=== PATIENT | female | born 1940 | race Hispanic/Latino ===

== ENCOUNTER 2017-09-02 01:45 | Inpatient (IN) | payer MEDICARE ==
[~2017-09-02] VITALS: Ht 154.9 cm; Wt 50.4 kg
[~2017-09-02 01:45] MED LIST: AMLO5TAB2 PO; CEPH500T PO; LEVO50 PO; METF-526 PO; PANT20TA12 PO
[2017-09-02 02:10] LABS: BASOPHILS % (AUTO) 0.7 % (0.0-5.0); EOSINOPHILS % (AUTO) 0.2 % (0.0-8.0); HEMATOCRIT 24.4 % (36-48); LYMPHOCYTES % (AUTO) 7.2 % (21.0-51.0); MEAN CORPUSCULAR HEMOGLOBIN 26.9 pg (27.0-33.0); MEAN CORPUSCULAR HGB CONC 32.1 g/dL (32.0-36.0); MEAN CORPUSCULAR VOLUME 83.9 fL (79-99); MONOCYTES % (AUTO) 5.8 % (3.0-13.0); NEUTROPHILS % (AUTO) 86.1 % (40.0-77.0); PLATELET COUNT (AUTO) 366 K/uL (130-400); RED BLOOD CELL COUNT(AUTO) 2.91 MIL/uL (4.00-5.50); RED CELL DISTRIBUTION WIDTH 21.6 % (11.0-15.5); WHITE BLOOD COUNT (AUTO) 10.8 K/uL (4.8-10.8)
[2017-09-02 02:18] LABS: CARBON DIOXIDE 17 mmol/L (21-32); CHLORIDE 97 mmol/L (101-111); CREATININE 0.7 mg/dL (0.5-1.5); GLOMERULAR FILTR. RATE CALC 86 mL/min (>60); GLUCOSE,RANDOM 194 mg/dL (70-105); INR 1.25 (0.85-1.15); PARTIAL THROMBOPLASTIN TIME 40.4 SEC (26.3-35.5); POTASSIUM 3.2 mmol/L (3.5-5.1); PROTHROMBIN TIME 13.1 SEC (9.6-11.6); SODIUM SERUM 128 mmol/L (136-145); UREA NITROGEN, BLOOD 5 mg/dL (7-18)
[2017-09-02 02:34] LABS: ALANINE AMINOTRANSFERASE 10 U/L (12-78); ALBUMIN 1.9 g/dL (3.5-5.0); AMYLASE 18 U/L (25-115); ASPARTATE AMINOTRANSFERASE 37 U/L (10-37); BILIRUBIN,TOTAL 0.7 mg/dL (0.2-1.0); CREATINE KINASE MB < 0.5 ng/mL (0.5-3.6); LIPASE 92 U/L (114-286); TOTAL PROTEIN, SERUM 5.3 g/dL (6.0-8.3)
[2017-09-02] MEDS ORDERED: SODIUM CHLORIDE 0.9% 1000ML 1,000 ML IV ONE ×2 (05:11→08:20)
[2017-09-02] MEDS ORDERED: ONDANSETRON HCL 4 MG/2 ML VIAL ONE (05:11)
[2017-09-02] MEDS ORDERED: SODIUM CHLORIDE 0.9% 500ML 500 ML IV ONE (11:33)
[2017-09-02] MEDS ORDERED: DEXAMETHASONE SOD PHOSPHATE 10MG/ML 1ML VIAL ONE (11:43)
[2017-09-02 15:35] LABS: APPEARANCE,URINE Clear (CLEAR); BILIRUBIN,URINE Negative (NEGATIVE); COLOR,URINE Dark Yellow (YELLOW); GLUCOSE, URINE (UA) TRACE mg/dL (NEGATIVE); KETONES,URINE >=80 mg/dL (NEGATIVE); LEUKOCYTE ESTERASE ,URINE Small (NEGATIVE); NITRATE,URINE Negative (NEGATIVE); OCCULT BLOOD,URINE Negative (NEGATIVE); PH,URINE 5.5 (5.0-8.0); PROTEIN,URINE POS 1+ (NEGATIVE)
[2017-09-02 16:15] LABS: BACTERIA,URINE Rare /HPF (None Seen); MUCUS,URINE Few LPF (None Seen); RBC,URINE 0-1 /HPF (0-1); SQUAMOUS EPITHELIAL CELL,UR Rare /LPF (0-2)
[2017-09-02 20:30] VITALS: BP 133/81
[2017-09-02] MEDS ORDERED: MORPHINE SULFATE 2 MG/ML 1ML SYG IVP PRN (21:00)
[2017-09-02 23:00] VITALS: BP 105/54
[2017-09-03] MEDS: ONDANSETRON HCL 4 MG/2 ML VIAL IVP PRN ×2 (01:28→11:04)
[2017-09-03 03:00] VITALS: BP 135/62
[2017-09-03 04:14] LABS: HEMATOCRIT 29.4 % (36-48)
[2017-09-03] MEDS ORDERED: MORPHINE SULFATE 4 MG/1ML SYG ONE (05:44)
[2017-09-03] MEDS: SODIUM CHLORIDE 0.9% 1000ML 1,000 ML IV SCH ×2 (06:49→19:34)
[2017-09-03 07:00] VITALS: BP 128/63
[2017-09-03] MEDS ORDERED: POTASSIUM CHLORIDE 20 MEQ ERTAB PO ONE (10:57)
[2017-09-03] MEDS ORDERED: POTASSIUM CHLORIDE 10% ELIXIR 20 MEQ/15 ML UDCUP ONE (10:58)
[2017-09-03] MEDS ORDERED: POTASSIUM CHLORIDE 20MEQ/100ML 100 ML IV ONE (10:58)
[2017-09-03 11:00] VITALS: BP 124/57
[2017-09-03] MEDS ORDERED: POTASSIUM CHLORIDE 20 MEQ ERTAB PO PRN (11:00)
[2017-09-03] MEDS ORDERED: POTASSIUM CHLORIDE 10% ELIXIR 20 MEQ/15 ML UDCUP PO PRN (11:00)
[2017-09-03] MEDS ORDERED: METOCLOPRAMIDE 10 MG/2 ML VIAL IVP PRN (12:30)
[2017-09-03 15:21] LABS: CREATININE 0.6 mg/dL (0.5-1.5); POTASSIUM 4.5 mmol/L (3.5-5.1)
[2017-09-03 16:00] VITALS: BP 138/80
[2017-09-03 20:39] VITALS: BP 120/67
[2017-09-04] VITALS (7 sets, daily range): BP systolic 104–136; BP diastolic 61–73
[2017-09-04] MEDS: SODIUM CHLORIDE 0.9% 1000ML 1,000 ML IV SCH ×2 (06:18→15:35)
[2017-09-04] MEDS ORDERED: CEFTRIAXONE 1GM/D5W 50ML 50 ML IV SCH (14:15)
[2017-09-04] MEDS: CEFTRIAXONE SODIUM 1 GM IVP SCH (15:35)
[2017-09-05] MEDS: SODIUM CHLORIDE 0.9% 1000ML 1,000 ML IV SCH ×3 (02:06→21:08)
[2017-09-05 03:00] VITALS: BP 115/68
[2017-09-05 07:00] VITALS: BP 111/69
[2017-09-05 08:50] LABS: HEMATOCRIT 31.2 % (36-48); MEAN CORPUSCULAR HEMOGLOBIN 27.5 pg (27.0-33.0); MEAN CORPUSCULAR HGB CONC 32.9 g/dL (32.0-36.0); MEAN CORPUSCULAR VOLUME 83.5 fL (79-99); PLATELET COUNT (AUTO) 337 K/uL (130-400); RED BLOOD CELL COUNT(AUTO) 3.73 MIL/uL (4.00-5.50); RED CELL DISTRIBUTION WIDTH 20.6 % (11.0-15.5); WHITE BLOOD COUNT (AUTO) 12.8 K/uL (4.8-10.8)
[2017-09-05 09:02] LABS: BILIRUBIN,TOTAL 0.4 mg/dL (0.2-1.0); CREATININE 0.5 mg/dL (0.5-1.5); POTASSIUM 3.3 mmol/L (3.5-5.1); TOTAL PROTEIN, SERUM 4.5 g/dL (6.0-8.3)
[2017-09-05 09:31] LABS: ALBUMIN 1.6 g/dL (3.5-5.0); MAGNESIUM 1.1 mg/dL (1.80-2.40)
[2017-09-05 11:00] VITALS: BP 114/61
[2017-09-05] MEDS ORDERED: MAGNESIUM 2GM PREMIX 50ML 50 ML IV SCH (14:00)
[2017-09-05] MEDS: CEFTRIAXONE SODIUM 1 GM IVP SCH (15:25)
[2017-09-05 15:56] VITALS: BP_SYST 117; BP_SYST 137; BP_DIAS 66; BP_DIAS 72
[2017-09-05] MEDS: LIDOCAINE HCL-MPF 1% 2ML VIAL IVP PRN (19:06)
[2017-09-05] MEDS: POTASSIUM CHLORIDE 20MEQ/100ML 100 ML IV PRN (19:06)
[2017-09-05 19:25] VITALS: BP 110/57
[2017-09-05 23:25] VITALS: BP 127/69
[2017-09-06 03:30] VITALS: BP 118/64
[2017-09-06] MEDS: SODIUM CHLORIDE 0.9% 1000ML 1,000 ML IV SCH ×2 (05:00→15:00)
[2017-09-06 07:06] LABS: CREATININE 0.4 mg/dL (0.5-1.5); MAGNESIUM 1.5 mg/dL (1.80-2.40); POTASSIUM 3.2 mmol/L (3.5-5.1)
[2017-09-06 08:00] VITALS: BP 122/61
[2017-09-06] MEDS: POTASSIUM CHLORIDE 20 MEQ ERTAB PO SCH ×2 (09:00→10:13)
[2017-09-06] MEDS: LIDOCAINE HCL-MPF 1% 2ML VIAL IVP PRN (10:15)
[2017-09-06] MEDS: POTASSIUM CHLORIDE 20MEQ/100ML 100 ML IV PRN (10:15)
[2017-09-06 11:00] VITALS: BP 113/64
[2017-09-06] MEDS ORDERED: MAGNESIUM SULFATE 1 GM in SODIUM CHLORIDE 0.9% 50 ML IV SCH (13:30)
[2017-09-06] MEDS: CEFTRIAXONE SODIUM 1 GM IVP SCH (15:45)
[2017-09-06 16:00] VITALS: BP 126/64
[2017-09-06] MEDS ORDERED: HEPARIN SODIUM/PF 100UNIT/ML 5ML SYRINGE IV SCH (17:00)
== END 2017-09-06 19:00 | DRG 682 ==
LOC: EDH 01:45 → OBSVTOIN 06:05 → EDHIP 06:05 → 3CH 20:13
PROVIDERS: ADMIT Internal Medicine; ATTEND Internal Medicine
PROC: 30233N1 Transfusion of Nonautologous Red Blood Cells into Peripheral Vein, Percutaneous Approach (ICD-10-PCS; principal; 2017-09-02)
DX: N17.9 Acute kidney failure, unspecified (principal); J18.9 Pneumonia, unspecified organism; D64.9 Anemia, unspecified; J44.0 Chronic obstructive pulmonary disease with (acute) lower respiratory infection; C34.90 Malignant neoplasm of unspecified part of unspecified bronchus or lung; E86.0 Dehydration; E87.1 Hypo-osmolality and hyponatremia; E83.42 Hypomagnesemia; R13.10 Dysphagia, unspecified; N39.0 Urinary tract infection, site not specified; E03.9 Hypothyroidism, unspecified; E78.5 Hyperlipidemia, unspecified; E87.6 Hypokalemia; I12.9 Hypertensive chronic kidney disease with stage 1 through stage 4 chronic kidney disease, or unspecified chronic kidney disease; I25.10 Atherosclerotic heart disease of native coronary artery without angina pectoris; N18.9 Chronic kidney disease, unspecified; R62.7 Adult failure to thrive; Z74.01 Bed confinement status; Z95.1 Presence of aortocoronary bypass graft; Z92.3 Personal history of irradiation; Z85.3 Personal history of malignant neoplasm of breast; Z51.11 Encounter for antineoplastic chemotherapy; Z88.8 Allergy status to other drugs, medicaments and biological substances
CPT/HCPCS: 36415; 71045; 74230; 80048; 80053; 81001; 82150; 82553; 83690; 83735; 84484; 85025; 85027; 85610; 85730; 86850; 86900; 86901; 86922; 87088; 87186; 92610; 92611; 93005; A4218; J0696; J1100; J1642; J2270; J2405; J2765; J3475; J3480; J3490; J7030; J7040; P9016

== ENCOUNTER 2017-09-30 11:20 | Inpatient (IN) | payer MEDICARE ==
[~2017-09-30] VITALS: Ht 154.9 cm; Wt 40.9 kg
[~2017-09-30 11:20] MED LIST changes: -AMLO5TAB2 PO; -CEPH500T PO; -METF-526 PO
[2017-09-30] MEDS ORDERED: MORPHINE SULFATE 8 MG/ML VIAL ONE (11:51)
[2017-09-30 12:12] LABS: BASOPHILS % (AUTO) 0.2 % (0.0-5.0); EOSINOPHILS % (AUTO) 1.8 % (0.0-8.0); HEMATOCRIT 31.5 % (36-48); MEAN CORPUSCULAR HEMOGLOBIN 28.9 pg (27.0-33.0); MEAN CORPUSCULAR HGB CONC 34.2 g/dL (32.0-36.0); MEAN CORPUSCULAR VOLUME 84.6 fL (79-99); MONOCYTES % (AUTO) 5.3 % (3.0-13.0); NEUTROPHILS % (AUTO) 82.7 % (40.0-77.0); PLATELET COUNT (AUTO) 445 K/uL (130-400); RED BLOOD CELL COUNT(AUTO) 3.73 MIL/uL (4.00-5.50); RED CELL DISTRIBUTION WIDTH 20.2 % (11.0-15.5); WHITE BLOOD COUNT (AUTO) 16.4 K/uL (4.8-10.8)
[2017-09-30 12:36] LABS: ALBUMIN 2.2 g/dL (3.5-5.0); BILIRUBIN,TOTAL 0.7 mg/dL (0.2-1.0); CREATININE 0.6 mg/dL (0.5-1.5); POTASSIUM 4.2 mmol/L (3.5-5.1); TOTAL PROTEIN, SERUM 6.1 g/dL (6.0-8.3)
[2017-09-30 15:55] LABS: APPEARANCE,URINE CLEAR (CLEAR); BILIRUBIN,URINE SMALL (NEGATIVE); COLOR,URINE YELLOW (YELLOW); GLUCOSE, URINE (UA) NEGATIVE (NEGATIVE); KETONES,URINE 40 mg/dL (NEGATIVE); LEUKOCYTE ESTERASE ,URINE NEGATIVE (NEGATIVE); NITRATE,URINE NEGATIVE (NEGATIVE); OCCULT BLOOD,URINE NEGATIVE (NEGATIVE); PROTEIN,URINE TRACE (NEGATIVE)
[2017-09-30 16:28] LABS: BACTERIA,URINE Rare /HPF (None Seen); RBC,URINE 0-1 /HPF (0-1); SQUAMOUS EPITHELIAL CELL,UR Rare /LPF (0-2); WBC,URINE 0-1 /HPF (0-1)
[2017-09-30 17:53] VITALS: BP 119/68
[2017-09-30] MEDS ORDERED: PANT40TA25 PO (18:00)
[2017-09-30] MEDS: SODIUM CHLORIDE 0.9% 1000ML 1,000 ML IV SCH (18:03)
[2017-09-30] MEDS: ONDANSETRON HCL 4 MG/2 ML VIAL IVP PRN (18:37)
[2017-09-30 19:38] VITALS: BP 123/66
[2017-09-30] MEDS: MORPHINE SULFATE 2 MG/ML 1ML SYG IVP PRN (20:34)
[2017-09-30] MEDS ORDERED: MORPHINE SULFATE 4 MG/1ML SYG ONE (23:04)
[2017-09-30] MEDS ORDERED: MORPHINE SULFATE 2 MG/ML 1ML SYG IVP ONE (23:15)
[2017-09-30 23:54] VITALS: BP 107/64
[2017-10-01] MEDS: KETOROLAC TROMETHAMINE 15MG/ML IV PRN ×2 (03:03→11:20)
[2017-10-01] MEDS: SODIUM CHLORIDE 0.9% 1000ML 1,000 ML IV SCH (03:04)
[2017-10-01 04:44] VITALS: BP 115/56
[2017-10-01 08:00] VITALS: BP 106/61
[2017-10-01] MEDS: FAMOTIDINE/PF 20 MG/2 ML VIAL IV SCH ×2 (08:14→21:02)
[2017-10-01] MEDS: MORPHINE SULFATE 2 MG/ML 1ML SYG IVP PRN ×3 (08:16→18:38)
[2017-10-01] MEDS: ONDANSETRON HCL 4 MG/2 ML VIAL IVP PRN (08:18)
[2017-10-01] MEDS ORDERED: MAG HYDROX/AL HYDROX/SIMETH 30 ML, LIDOCAINE HCL 2% VISCOUS 30 ML, DIPHENHYDRAMINE HCL ... PO PRN ×3 (11:00)
[2017-10-01] MEDS ORDERED: MAG HYDROX/AL HYDROX/SIMETH ES 30 ML SUSP UDCUP PO PRN (11:00)
[2017-10-01] MEDS ORDERED: ACETAMINOPHEN 325 MG TAB PO PRN ×2 (11:00)
[2017-10-01] MEDS ORDERED: LACTULOSE 20 GM/30 ML UDCUP PO PRN (11:00)
[2017-10-01] MEDS ORDERED: GUAIFENESIN-DM 200/20 MG 10 ML PO PRN (11:00)
[2017-10-01] MEDS ORDERED: ONDANSETRON HCL 4 MG/2 ML VIAL IV PRN (11:00)
[2017-10-01] MEDS ORDERED: NITROGLYCERIN 0.4 MG SL TAB SL PRN (11:00)
[2017-10-01] MEDS ORDERED: HYDRALAZINE HCL 20 MG/ML VIAL IV PRN (11:00)
[2017-10-01 11:08] LABS: CREATININE 0.6 mg/dL (0.5-1.5)
[2017-10-01] MEDS ORDERED: COMPOUND PO MISCELLANEOUS 1 EACH MISC MISC PRN (11:30)
[2017-10-01] MEDS ORDERED: MORPHINE SULFATE 4 MG/1ML SYG IV PRN (11:45)
[2017-10-01] MEDS ORDERED: MORPHINE SULFATE 2 MG/ML 1ML SYG IVP PRN (11:45)
[2017-10-01 11:50] VITALS: BP 114/60
[2017-10-01] MEDS: LIDOCAINE HCL 2% VISCOUS 30 ML, MAG HYDROX/AL HYDROX/SIMETH 30 ML, DICYCLOMINE HCL 20 MG PO PRN ×3 (14:01)
[2017-10-01] MEDS: TRAMADOL HCL 50 MG TABLET PO PRN ×2 (14:01→21:03)
[2017-10-01] MEDS: NYSTATIN 100000 UNIT/ML 5ML UDCUP PO SCH ×3 (14:02→21:02)
[2017-10-01 15:50] VITALS: BP 103/63
[2017-10-01 19:32] VITALS: BP 102/61
[2017-10-01 23:27] VITALS: BP 97/56
[2017-10-02] MEDS: SODIUM CHLORIDE 0.9% 1000ML 1,000 ML IV SCH ×2 (01:32→09:09)
[2017-10-02 04:00] VITALS: BP 119/67
[2017-10-02 04:47] LABS: HEMATOCRIT 26.5 % (36-48); MEAN CORPUSCULAR HEMOGLOBIN 28.7 pg (27.0-33.0); MEAN CORPUSCULAR HGB CONC 34.2 g/dL (32.0-36.0); MEAN CORPUSCULAR VOLUME 83.7 fL (79-99); PLATELET COUNT (AUTO) 341 K/uL (130-400); RED BLOOD CELL COUNT(AUTO) 3.17 MIL/uL (4.00-5.50); RED CELL DISTRIBUTION WIDTH 19.8 % (11.0-15.5); WHITE BLOOD COUNT (AUTO) 12.6 K/uL (4.8-10.8)
[2017-10-02 04:53] LABS: CREATININE 0.5 mg/dL (0.5-1.5); POTASSIUM 3.8 mmol/L (3.5-5.1)
[2017-10-02 08:00] VITALS: BP 100/51
[2017-10-02] MEDS ORDERED: ENOXAPARIN SODIUM 30 MG/0.3 ML SQ SCH (09:00)
[2017-10-02] MEDS: NYSTATIN 100000 UNIT/ML 5ML UDCUP PO SCH ×4 (09:06→21:00)
[2017-10-02] MEDS: FAMOTIDINE/PF 20 MG/2 ML VIAL IV SCH ×2 (09:07→21:36)
[2017-10-02] MEDS: LIDOCAINE HCL 2% VISCOUS 30 ML, MAG HYDROX/AL HYDROX/SIMETH 30 ML, DICYCLOMINE HCL 20 MG PO PRN ×3 (09:37)
[2017-10-02 11:37] VITALS: BP 104/53
[2017-10-02 16:00] VITALS: BP 122/52
[2017-10-02] MEDS: TRAMADOL HCL 50 MG TABLET PO PRN (17:04)
== END 2017-10-02 21:49 | disposition hospice, home (50) | DRG 640 ==
LOC: EDH 11:20 → EDHIP 13:57 → 3DH 17:13
PROVIDERS: ADMIT Internal Medicine; ATTEND Internal Medicine
DX: E87.1 Hypo-osmolality and hyponatremia (principal); E43 Unspecified severe protein-calorie malnutrition; B37.0 Candidal stomatitis; E86.0 Dehydration; J44.9 Chronic obstructive pulmonary disease, unspecified; R64 Cachexia; D64.9 Anemia, unspecified; Z68.1 Body mass index [BMI] 19.9 or less, adult; R41.82 Altered mental status, unspecified; E87.6 Hypokalemia; I25.10 Atherosclerotic heart disease of native coronary artery without angina pectoris; E03.9 Hypothyroidism, unspecified; F32.9 Major depressive disorder, single episode, unspecified; Z66 Do not resuscitate; I10 Essential (primary) hypertension; Z85.118 Personal history of other malignant neoplasm of bronchus and lung; Z92.21 Personal history of antineoplastic chemotherapy; Z92.3 Personal history of irradiation; Z95.1 Presence of aortocoronary bypass graft; Z88.7 Allergy status to serum and vaccine; Z88.8 Allergy status to other drugs, medicaments and biological substances
CPT/HCPCS: 36415; 71045; 80048; 80053; 81001; 82948; 83605; 85025; 85027; 87804; 93005; 99291; J1650; J1885; J2270; J2405; J3490; J7030